=== PATIENT | male | born 1950 | race Caucasian/White ===

== ENCOUNTER 2020-03-19 21:34 | Emergency (ER) | payer OTHER, MEDICARE ==
[~2020-03-19] VITALS: Ht 185.4 cm; Wt 167.8 kg
[~2020-03-19 21:34] MED LIST: ASPIR 8181 MG PO; COZAAR 25 MG TA25 M1 PO; FOLBIC RF TABL1 EACH PO; GLUCOPHAGE XR500 M1 PO; LISINOPRIL10 MG PO; VITAMIN B-122500 MCG PO; ZPAK PO
[2020-03-19] MEDS ORDERED: HYDROCHLOROTHIA25 M2 PO (21:51)
[2020-03-19] MEDS ORDERED: VITAMIN D250 MCG PO (21:51)
[2020-03-19] MEDS ORDERED: CLARITIN10 M3 PO (21:52)
[2020-03-19] MEDS ORDERED: NORVASC 2.5 MG2.5 M1 PO (21:52)
[2020-03-19] MEDS ORDERED: NAPROSYN500 M1 PO (21:52)
[2020-03-19] MEDS ORDERED: TYLENOL 8 HOUR650 MG PO (21:53)
[2020-03-19 22:29] LABS: ABSOLUTE BASOPHILS 0.1 thou/uL (0.0-0.2); ABSOLUTE EOSINOPHILS 0.2 thou/uL (0.0-0.7); ABSOLUTE LYMPHOCYTES 2.3 thou/uL (0.8-5.3); ABSOLUTE MONOCYTES 0.6 thou/uL (0.0-1.2); ABSOLUTE NEUTROPHILS 5.6 thou/uL (1.6-8.1); BASOPHILS 0.7 %; EOSINOPHILS 2.2 %; HEMATOCRIT 41.3 % (42.0-52.0); HEMOGLOBIN 14.4 gm/dL (14.0-18.0); LYMPHOCYTES 26.2 %; MCH 30.4 pg (26.0-34.0); MCHC 34.9 g/dL (28.0-37.0); MONOCYTES 6.9 %; MPV 7.2 fl. (7.2-11.1); NUCLEATED RBCS 0 /100WBC; PLATELET COUNT* 272 thou/uL (150-400); RBC 4.75 mil/uL (4.50-6.00); RDW-CV 13.6 % (10.5-14.5); WBC 8.7 thou/uL (4.0-11.0)
[2020-03-19 22:40] LABS: CALCIUM 8.8 mg/dL (8.5-10.1); CREATININE 1.7 mg/dL (0.6-1.3); POTASSIUM 3.5 mmol/L (3.5-5.1)
[2020-03-19 22:51] LABS: ALBUMIN 3.6 g/dL (3.4-5.0); TOTAL BILIRUBIN 0.3 mg/dL (<0.1-1.0); TOTAL PROTEIN 7.3 g/dL (6.4-8.2)
[2020-03-20 00:43] VITALS: BP 170/95
--- NOTE | 2020-03-20 16:10 | EKG ---
[place] [address] ELECTROCARDIOGRAM REPORT Name: NHI BARNEY Room: [facility]#: [id number] Admission: 03/19/20 Attend Phys: Discharge: 03/20/20 Date of : 48 Date of Service: 03/19/202148 Report #: [id number] THIS REPORT FOR: //name// [facility] ED Test Date: 2020-03-19 Test Time: 21:49:44 Pat Name: NHI BARNEY Department: Room: Gender: Rail Switch Operator: [facility] : 1950 Requested By: Negin Collins Order Number: [id number] MD: Jamaal Dougherty Measurements Intervals [place] Rate: 86 P: -22 OR: 131 QRS: 52 QRSD: 151 T: 13 QT: 402 QTc: 481 Interpretive Statements Sinus rhythm Right bundle branch block Compared to ECG 09/28/2015 11:13:36 Right bundle-branch block now present Electronically Signed On 03-20-2020 16:10:04 CDT by Jamaal Dougherty [email or web address] <ELECTRONICALLY SIGNED> By: Jamaal Dougherty MD, FACC 03/20/20 1610 2149 2149 Jamaal Dougherty MD, [facility] /EPI
== END 2020-03-20 00:43 | disposition home or self-care (01) ==
LOC: M.ERS 21:34
PROVIDERS: Personal Emergency Response Attendant
DX: I10 Essential (primary) hypertension (principal); R06.02 Shortness of breath; Z98.890 Other specified postprocedural states; Z90.89 Acquired absence of other organs; Z79.82 Long term (current) use of aspirin; Z79.899 Other long term (current) drug therapy